=== PATIENT | female | born 2000 | race Two or more races ===

== ENCOUNTER 2024-07-26 07:11 | Day surgery (SDC) | payer MEDICAID ==
[2024-07-22 10:18] LABS: Urine Bacteria None Seen /hpf (None Seen)
[2024-07-22 10:22] LABS: Basophils # (auto) 0 10 ^3/uL (0-0.2); Basophils % (auto) 0.4 % (0.0-2.0); Eosinophils # (auto) 0.3 10 ^3/uL (0-0.8); Eosinophils % (auto) 4.7 % (0.0-7.0); Hemoglobin 13.2 g/dL (12.2-16.2); Lymphocytes # (auto) 2.4 10 ^3/uL (0.4-5.4); Lymphocytes % (auto) 34.5 % (10.0-50.0); Mean Corpuscular Hemoglobin 31.5 pg (28.0-32.0); Mean Corpuscular Hgb Conc. 33.9 g/dL (32.0-36.0); Monocytes # (auto) 0.4 10 ^3/uL (0-1.3); Monocytes % (auto) 6.1 % (0.0-12.0); Neutrophils # (auto) 3.8 10 ^3/uL (1.6-8.6); Neutrophils % (auto) 54.3 % (37.0-80.0); Platelet Count (auto) 308 10^3/uL (140-450); Red Blood Cells 4.19 10^6/uL (4.0-5.20)
[2024-07-22 10:25] LABS: Urine Blood Negative /uL (Negative); Urine Clarity Clear (Clear); Urine Color Light-Yellow (Yellow); Urine Protein, UAD Negative (Negative); Urine Specific Gravity 1.017 (1.001-1.035); Urine Urobilinogen Normal (Negative); Urine WBC <1 /hpf (0 - 5); Urine pH 5.5 (5.0-9.0)
[2024-07-22 10:39] LABS: INR 1.05 (0.9-1.15); Partial Thromboplastin Time 30.6 SEC (24.5-34.5); Prothrombin Time 11.1 sec (9.3-11.8)
[2024-07-22 12:05] LABS: Alkaline Phosphatase 50 U/L (46-116); Anion Gap 4 (5-15); BUN/Creatinine Ratio 17.5 (10.0-20.0); Blood Urea Nitrogen 10 mg/dL (9-23); Calcium 9.9 mg/dL (8.7-10.4); Carbon Dioxide 29 mmol/L (20-31); Chloride 106 mmol/L (98-107); Glucose 91 mg/dL (74-106); Potassium 4.2 mmol/L (3.5-5.1); Sodium 139 mmol/L (136-145)
[2024-07-22 12:06] LABS: Alanine Aminotransferase 9 U/L (7-40); Albumin 4.5 g/dL (3.2-4.8); Aspartate Aminotransferase 11 U/L (13-40)
[2024-07-22 12:07] LABS: Bilirubin, Total 0.5 mg/dL (0.2-1.0); Total Protein 7.4 g/dL (5.7-8.2)
[~2024-07-26] VITALS: Ht 162.6 cm; Wt 69.4 kg
[2024-07-26] MEDS ORDERED: ROCURONIUM 10MG/ML 10ML VIAL IV ONE (07:12)
[2024-07-26 07:17] VITALS: TEMP 97.8
[2024-07-26] MEDS ORDERED: ceFAZolin 2 GM/D5W100ml 100 ML IV ONE (07:23)
[2024-07-26] MEDS ORDERED: fentaNYL CITRATE 100 MCG/2 ML VL ONE (08:30)
[2024-07-26] MEDS ORDERED: MEPERIDINE HCL (50 MG/ML) 1 ML VIAL ONE (08:31)
[2024-07-26] MEDS ORDERED: MIDAZOLAM HCL 2MG/2ML 2ml VIAL (1mg/ml) ONE (08:31)
[2024-07-26] MEDS ORDERED: DexAMETHasone SOD PHOS 10MG/1ML VIAL INJ ONE (08:40)
[2024-07-26] MEDS ORDERED: HYDR1TAB97 PO (08:42)
[2024-07-26] MEDS ORDERED: IBUP1TAB5 PO (08:43)
[2024-07-26] MEDS ORDERED: ONDANSETRON HCL 4 MG/2 ML VIAL IV ONE (08:45)
[2024-07-26] MEDS ORDERED: MIDAZOLAM HCL 2MG/2ML 2ml VIAL (1mg/ml) IV PRN (08:45)
[2024-07-26] MEDS ORDERED: hydrALAZINE HCL 20 MG/ML VL IV PRN (08:45)
[2024-07-26] MEDS ORDERED: KETOROLAC TROMETH 30 MG/ML 1ML VIAL IV ONE (08:45)
[2024-07-26] MEDS ORDERED: MORPHINE SULFATE 4 MG/ML SYR/VIAL IV PRN (08:45)
[2024-07-26] MEDS ORDERED: ePHEDrine SULFATE 50 MG/ML AMP IV PRN (08:45)
[2024-07-26] MEDS: BUPIVACAINE 0.25% INJ 50ML VIAL ONE (08:58)
[2024-07-26] MEDS: LIDOCAINE W/ EPINEPHRINE 1% 20ML VIAL ONE (08:58)
[2024-07-26 09:15] VITALS: PULSE 72; RESP 13; O2SAT 99
[2024-07-26] MEDS ORDERED: PROPOFOL 10 MG/ML 20 ML IV ONE (09:22)
[2024-07-26] MEDS: HYDROmorphone HCL 2 MG/ML VL/or syr IV PRN (09:36)
--- NOTE | 2024-07-26 09:54 | DVHOP ---
DATE OF SURGERY: 07/26/2024 PREOPERATIVE DIAGNOSIS: Encounter for female sterilization. FINAL DIAGNOSES: Encounter for female sterilization. PROCEDURE PERFORMED: Operative laparoscopic bilateral tubal ligation via Filshie clip method. SURGEON: Stephen Stallings DO NEUROSURGICAL NURSE: Sumit Garcia NP TYPE OF ANESTHESIA: General. ANESTHESIOLOGIST: Jah Ignacio M.D. DESCRIPTION OF FINDINGS: A normal sized uterus. Uterine cavity sounds to 8 cm. Normal bilateral fallopian tubes, ovaries, normal intraabdominal organs. Successful placement of Filshie clips at the mid isthmic portion of the fallopian tubes bilaterally. TECHNICAL PROCEDURE: After informed consent was obtained, the patient was taken to the operating room where she underwent smooth induction with general anesthesia. She was placed in dorsal lithotomy position in Steve stirrups. The vagina, perineum, abdomen were thoroughly prepped and the patient sterilely draped in the usual fashion. A pelvic exam was then performed under anesthesia with the above noted findings. A weighted speculum was placed into the patient's vagina. The anterior lip of the cervix was grasped with ring forceps. Uterine cavity sounded to 8 cm. A HUMI uterine manipulator was placed transcervically and the balloon inflated. All instrumentation was then removed from the patient's vagina. Attention was then placed into the patient's abdomen, where a 5 mm incision was made at the base of the umbilicus. The umbilical stalk was elevated with a Eunice clamp and a Veress needle introduced into the abdominal cavity with tenting of the abdominal wall. Intraperitoneal placement was successful confirmed by the hanging water drop test. Carbon dioxide gas was infused and pneumoperitoneum obtained using a 5 mm Optiview trocar. This was inserted through the 5 mm port through the umbilicus. Intraperitoneal placement was confirmed directly with the laparoscope. An 8 mm trocar was inserted in the midline 2 cm above the pubic symphysis under direct visualization. Next, the uterus was manipulated, the left and right fallopian tubes were found and traced to their fimbriated ends. After positively identifying the left fallopian tube, the Filshie clip device was inserted through the 8 mm port and a Filshie clip placed at the mid isthmic portion of the left fallopian tube blanching at the site of application was noted. The entire circumference of the fallopian tube was successfully occluded and photos obtained. The procedure was similarly repeated on the contralateral fallopian tube in similar fashion. There was no bleeding from the mesosalpinx. Photos of the surgery were obtained. The abdomen was surveyed and appeared normal. Next, the carbon dioxide gas was removed and the trocars were removed under direct visualization. The skin incisions were injected with 0.25% Marcaine with epinephrine, approximately 10 mL were used. The 8 mm skin incision was closed with 3-0 Monocryl and the umbilical incision was closed with 3-0 Monocryl. A thin layer of Dermabond was then placed. The transcervical manipulator was removed with no bleeding from the cervix noted. The patient was taken out of lithotomy position, awakened, and taken to recovery room in stable condition. INTRAOPERATIVE COMPLICATIONS: None. ESTIMATED BLOOD LOSS: Less than 10 mL POSTOPERATIVE CONDITION: Stable. DO ARIANDA Leary TID: [id number] RECEIPT: [id number]
[2024-07-26 10:05] VITALS: BP 112/70; PULSE 63; RESP 12; O2SAT 100
== END 2024-07-26 10:17 | disposition home or self-care (01) ==
LOC: SUR 07:11
PROVIDERS: ATTEND Obstetrics & Gynecology
DX: Z30.2 Encounter for sterilization (principal)
CPT/HCPCS: 36415; 58671; 80053; 81001; 81025; 84702; 85025; 85610; 85730; 86850; 86900; 86901; J1100; J1171; J2175; J2250; J2704; J3010; J3490